=== PATIENT | female | born 1980 | race American Indian/Alaskan Native ===

== ENCOUNTER 2016-08-30 07:10 | Emergency (ER) | payer BC ==
[2016-08-30 07:28] VITALS: BP 127/90
[2016-08-30 07:53] LABS: Basophils % (Auto) 0.5 % (0.0-1.8); Eosinophils % (Auto) 0.6 % (0.0-4.3); Hematocrit 33.2 % (30.3-42.9); Hemoglobin 10.9 gm/dl (10.1-14.3); Mean Corpuscular HGB Conc 33 % (30-34); Mean Corpuscular Hemoglobin 29 pg (28-32); Mean Corpuscular Volume 89 fl (79-97); Platelet Count 368 K/mm3 (140-440); Red Blood Count 3.74 M/mm3 (3.65-5.03); Red Cell Distribution Width 15.5 % (13.2-15.2); White Blood Count 7.3 K/mm3 (4.5-11.0)
[2016-08-30 08:07] LABS: Partial Thromboplastin Time 27.3 Sec. (24.2-36.6)
[2016-08-30 08:10] LABS: Anion Gap 17 mmol/L; Blood Urea Nitrogen 12 mg/dL (7-17); Calcium 9.2 mg/dL (8.4-10.2); Carbon Dioxide 23 mmol/L (22-30); Chloride 105.3 mmol/L (98-107); Glucose 97 mg/dL (65-100); Potassium 4.1 mmol/L (3.6-5.0); Sodium 141 mmol/L (137-145)
[2016-08-30] MEDS ORDERED: DUONEB 0.5 MG-3 MG/3 ML SOLN IH ONE (09:30)
[2016-08-30] MEDS ORDERED: DELTASONE PO ONE (09:32)
--- NOTE | 2016-08-30 18:17 | Emergency Department Report ---
Entered by ADRIANA AGUIAR, acting as scribe for JONATHAN BARONE PA. ED Chest Pain HPI - General Chief Complaint: Chest Pain Stated Complaint: CP Time Seen by Provider: 08/30/16 09:22 Source: patient Mode of arrival: Ambulatory Limitations: No Limitations - History of Present Illness Initial Comments: 35 y/o female, with PMHx of Bronchitis, presents with constant, achy, mild right sided chest pain that started 2 days ago, alleviated with inhaler, aggravated by nothing. Associated Sx include MONIQUE that started yesterday and has since resolved but pt denies trauma or injury to chest, cough or n/v. No additional Sx. MD Complaint: chest pain -: days(s) (2) Onset: during rest Pain Location: other (right sided) Pain Radiation: none Severity: mild Severity scale (0 -10): 4 Quality: aching Consistency: constant Improves With: nothing Worsens With: nothing re: denies: nausea, vomting, diaphoresis, dyspnea, sense of impending doom Other Symptoms: denies: cough, fever, syncope, rash, acid taste in mouth, leg swelling, palpitations, burping Treatments Prior to Arrival: other (inhaler at home) - Related Data Previous Rx's Medication Instructions Recorded Last Taken Type predniSONE [Deltasone] 10 mg PO QDAY #5 tab 08/30/16 Unknown Rx Allergies Allergy/AdvReac Type Severity Reaction Status Date / Time No Known Allergies Allergy Verified 08/30/16 07:29 Heart Score - HEART Score History: Slightly suspicious EKG: Normal Age: < 45 Risk factors: No known risk factors Troponin: < normal limit HEART Score: 0 ED Review of Systems Comment: All other systems reviewed and negative Constitutional: denies: chills, fever Respiratory: denies: cough, shortness of breath (relieved with breathing treatment) Cardiovascular: chest pain Gastrointestinal: denies: abdominal pain, nausea, vomiting Neurological: headache. denies: weakness, numbness ED Past Medical Hx - Past Medical History Previous Medical History?: Yes Hx Asthma: Yes - Surgical History Past Surgical History?: Yes Additional Surgical History: - Social History Smoking Status: Never Smoker Substance Use Type: Alcohol - Medications Home Medications: Home Medications Medication Instructions Recorded Confirmed Last Taken Type predniSONE [Deltasone] 10 mg PO QDAY #5 tab 08/30/16 Unknown Rx ED Physical Exam - General Limitations: No Limitations - Other Other exam information: GENERAL: Patient is alert and oriented x 3. No apparent distress, normal gait, atraumatic. HEAD: Head is normocephalic and atraumatic. EYES: Extraocular movements are intact. Pupils are equal, round, and reactive to light and accommodation. LUNGS: Symmetrical with respiration, no wheezing, no rales, no crackles, CTAB HEART: s1/s2 present, regular rate and rhythm, without murmur, no rubs or gallops, Not TTP ABDOMEN: Soft, nondistended. Nontender to palpation on all quadrants. No organomegaly was noted. Positive bowel sounds. No CVA tenderness. EXTREMITIES/MUSCULOSKELETAL: No cyanosis, clubbing, rash, lesions or edema. Full ROM bilaterally. UE/LE Pulses 2+ bilaterally. LE and UE 5+ strength bilaterally SKIN: Warm and dry. No lesions, ulceration or induration present NEUROLOGIC: No focal deficit., Cranial nerves II - XII are grossly intact. No loss of sensation. No facial droop. Negative romberg.. PSYCHIATRIC: Mood is congruent with affect. Denies suicidal or homicidal ideations ED Course Vital Signs 08/30/16 08/30/16 07:25 09:49 Temperature 98.8 F Pulse Rate 93 H Respiratory 16 16 Rate Blood Pressure 127/90 O2 Sat by Pulse 100 Oximetry SHAILESH score - Shailesh Score Age > 65: (0) No Aspirin use within the Past 7 Days: (0) No 3 or more CAD Risk Factors: (0) No 2 or more Angina events in past 24 hrs: (0) No Known CAD with more than 50% Stenosis: (0) No Elevated Cardiac Markers: (0) No ST Deviation Greater than 0.5mm: (0) No SHAILESH Score: 0 ED Medical Decision Making - Lab Data Result diagrams: 08/30/16 07:43 08/30/16 07:43 - EKG Data -: EKG Interpreted by Me EKG shows normal: sinus rhythm Rate: normal - EKG Data When compared to previous EKG there are: no significant change Interpretation: no acute changes, normal EKG - Medical Decision Making 35 y/o female, with PMHx of Bronchitis, presents with Asthma exerbation ED course: ABC, BMP, troponin, EKG coagulation studies all ordered in triage. Patient received one breathing treatment while in ED. EKG normal sinus rhythm see report, troponin negative, CBC within normal limits , BMP within normal limits Discussed all findings with the patient. To reevaluation patient states she feels much better. Vital signs stable patient is in no acute or respiratory distress. Discussed findings with patient about diagnoses. Discussed treatment in ED with patient Discussed with patient to follow up with PCP as referred, and to return to the ED if her symptoms return or worsen. Patient states understanding and will follow instructions. ED Disposition Clinical Impression: Asthma exacerbation Disposition: DC- TO HOME OR SELFCARE Is pt being admited?: No Does the pt Need Aspirin: No Condition: Stable Instructions: Asthma (ED) Prescriptions: predniSONE [Deltasone] 10 mg PO QDAY #5 tab Referrals: PRIMARY CAREMD [Primary Care Provider] - 3-5 Days RAMAN AQUINO MD [Referring] - 3-5 Days [facility] [Outside] - 3-5 Days [facility] [Outside] - 3-5 Days Forms: Work/School Release Form(ED) Time of Disposition: 10:21 This documentation as recorded by the COSME rain RYAN,accurately reflects the service I personally performed and the decisions made by ,JONATHAN BARONE PA.
== END 2016-08-30 10:44 | disposition home or self-care (01) ==
LOC: ED 07:10
DX: J45.901 Unspecified asthma with (acute) exacerbation (principal)
CPT/HCPCS: 36415; 80048; 84484; 84703; 85025; 85610; 85730; 93005; 93010; 94640; 99284; J7512